=== PATIENT | female | born 1950 | race Caucasian/White ===

== ENCOUNTER 2025-05-05 14:35 | Emergency (ER) | payer OTHER ==
[2025-05-05 15:12] LABS: Sqamous Epithelial None Seen /HPF (None Seen); Urine Crystals Unidentified Moderate /HPF (None Seen); Urine Culture Reflex Order REFLEXED; Urine Microscopic Reflex YN ORDER UMIC; Urine WBC Clump Many /HPF (None Seen); Urine Yeast (Budding) Many /HPF (None Seen)
[2025-05-05] MEDS ORDERED: ACETAMINOPHEN 500 MG TAB ONE (15:21)
[2025-05-05] MEDS ORDERED: levoFLOXacin 250 MG TAB ONE (15:21)
[2025-05-05] MEDS ORDERED: ONDANSETRON 4 MG (ODT) TAB ONE (15:22)
--- NOTE | 2025-05-05 15:31 | EDPHYS ---
Physician Documentation [facility] Name: Floresita Jose Age: 75 yrs Sex: Female : 1950 Arrival Date: 05/05/2025 Time: 14:35 Bed 20 Private MD: ED Physician David Rodriguez HPI: 05/05 14:50 This 75 yrs old Female presents to ER via Ambulatory with complaints of Urinary Problem.cp 14:50 The patient presents with urinary symptoms, dysuria, hematuria. cp 14:50 Onset: The symptoms/episode began/occurred 2 day(s) ago. Associated signs and symptoms: cp Pertinent positives: nausea, lower abdomen pain, Pertinent negatives: fever, vomiting, back pain. Severity of symptoms: in the emergency department the symptoms are unchanged, despite home interventions. Historical: - Allergies: 14:46 Sulfa (Sulfonamide Antibiotics); dd2 - PMHx: 14:46 None; dd2 - PSHx: 14:46 Total abdominal hysterectomy; dd2 - Immunization history:: Adult Immunizations up to date. - Infectious Disease History:: Denies. - Social history:: Smoking status: Patient denies any tobacco usage or history of. ROS: 14:55 Constitutional: Positive for chills, Negative for body aches, fever, poor PO intake, cp 14:57 Abdomen/GI: Positive for abdominal pain, nausea, of the suprapubic area, cp 14:57 Eyes: Negative for injury, pain, redness, and discharge, cp 14:57 Cardiovascular: Negative for chest pain, cp 14:57 Respiratory: Negative for cough, shortness of breath, wheezing, 14:57 Back: Negative for pain at rest, pain with movement, 14:57 Neuro: Negative for altered mental status, dizziness, headache, weakness, 14:57 All other systems are negative, Exam: 15:00 Constitutional: The patient appears in no acute distress, alert, awake, non-toxic, well cp developed, well nourished, 15:00 Head/Face: Normocephalic, atraumatic. cp 15:00 Eyes: Periorbital structures: appear normal, Conjunctiva: normal, no exudate, no injection, Sclera: no appreciated abnormality, Lids and lashes: appear normal, bilaterally, 15:00 ENT: External ear(s): are unremarkable, Nose: is normal, Mouth: Lips: moist, Oral mucosa: moist, Posterior pharynx: Airway: no evidence of obstruction, patent, 15:00 Chest/axilla: Inspection: normal, 15:00 Cardiovascular: Rate: normal, 15:00 Respiratory: the patient does not display signs of respiratory distress, Respirations: normal, no use of accessory muscles, no retractions, labored breathing, is not present, Breath sounds: are clear throughout, no decreased breath sounds, 15:00 Abdomen/GI: Inspection: abdomen appears normal, Palpation: soft, in all quadrants, mild abdominal tenderness, in the suprapubic area, 15:00 Back: CVA tenderness, is absent, 15:00 Neuro: Orientation: to person, place \T\ time. Mentation: is normal, Motor: moves all fours, strength is normal, Gait: is steady, at a normal pace, without difficulty, Vital Signs: 14:44 BP 177 / 86; Pulse 88; Resp 16; Temp 98.5; Pulse Ox 98% ; Weight 68.04 kg; Height 5 ft. dd2 4 in. ; Pain 5/10; 14:48 BP 162 / 86; Pulse 89; Resp 18; Pulse Ox 97% ; ar8 15:30 BP 143 / 80; Pulse 89; Resp 17; Pulse Ox 97% on R/A; ar8 14:44 Body Mass Index 25.75 (68.04 kg, 162.56 cm) dd2 14:44 Pain Scale: Adult dd2 MDM: 14:39 Medical Screening Exam initiated cp 15:00 Differential diagnosis: urinary tract infection, kidney stone, sepsis, bacteremia, cp cystitis. 15:16 Data reviewed: vital signs, nurses notes, lab test result(s), urinalysis. cp 15:30 I considered the following discharge prescriptions or medication management in the emergency department Medications were administered in the Emergency Department. See MAR. Counseling: I had a detailed discussion with the patient and/or guardian regarding the historical points, exam findings, and any diagnostic results supporting the discharge/admit diagnosis, lab results, to return to the emergency department if symptoms worsen or persist or if there are any questions or concerns that arise at home. 05/05 14:45 Order name: UA Rfx Tyrel Cult if indicated; Complete Time: 15:12 05/05 15:13 Interpretation: Normal except: [facility] Extremely Turbid; UBLD 3+ (OVER); UPROT 2+; UESTR cp 500; UWBC >50; URBC >50; UNCX Moderate; UWBC Clump Many; BYST Many. 05/05 15:15 Order name: Urine Culture EDMS Administered Medications: 15:54 Drug: Acetaminophen PO 1000 mg PO once Route: PO; ar8 15:54 Follow up: Response: Medication administered at discharge. ar8 15:54 Drug: Ondansetron PO 4 mg PO once Route: PO; ar8 15:54 Follow up: Response: Medication administered at discharge. ar8 15:54 Drug: LevOfloxacin PO 500 mg PO once Route: PO; ar8 15:54 Follow up: Response: Medication administered at discharge. ar8 15:55 Not Given (Patient Refused; refused due to delay in arrival from [facility]): ar8 [id number] mg PO once Disposition: 17:11 Co-signature as Attending Physician, David Rodriguez MD I reviewed the patient's care rn provided by the Advanced Practice Provider and agree with the diagnosis and treatment plan. Disposition Summary: 05/05/25 15:31 Discharge Ordered Notes: Location: Home cp Problem: new cp Symptoms: have improved cp Condition: Stable cp Diagnosis - UTI/ Urinary tract infection, site not specified cp Followup: cp - With: Private Physician - When: 2 - 3 days - Reason: Recheck today's complaints Discharge Instructions: - Discharge Summary Sheet cp - Urinary Tract Infection, Adult cp Forms: - Medication Reconciliation Form cp - Antibiotic Education cp - Prescription Opioid Use cp - Patient Portal Instructions cp - Leadership Thank You Letter cp Prescriptions: - Pyridium 200 mg Oral Tablet - take 1 tablet ORAL route every 8 hours for 3 days; 9 tablet; Refills: 0, cp Product Selection Permitted - Zofran 4 mg Oral tablet - take 1 tablet ORAL route every 12 hours As needed; 15 tablet; Refills: 0, cp Product Selection Permitted - cefpodoxime 200 mg Oral tablet - take 1 tablet ORAL route every 12 hours for 7 days with food; 14 tablet; cp Refills: 0, Product Selection Permitted Signatures: Dispatcher [employer] EDMS David Rodriguez MD MD rn Page, Corey, PA-C PAHILARIO ARIAS cp, RN RN dd2 Aidan Stanley RN RN ar8 Corrections: (The following items were deleted from the chart) 14:58 14:55 Constitutional: Negative for body aches, fever, poor PO intake, cp cp
--- NOTE | 2025-05-05 15:31 | ER ---
Nurse's Notes [facility] Name: Floresita Jose Age: 75 yrs Sex: Female : 1950 Arrival Date: 05/05/2025 Time: 14:35 Bed 20 Private MD: Diagnosis: UTI/ Urinary tract infection, site not specified Presentation: 05/05 14:44 Chief complaint: Patient states: URINARY FREQUENCY, URGENCY, AND BURNING FOR 2 DAYS. dd2 REPORTS SHE BEGAN HAVING CHILLS LOWER ABDOMINAL PAIN AND BLOOD IN HER URINE TODAY. Coronavirus screen: At this time, the client does not indicate any symptoms associated with coronavirus-19. Ebola Screen: No symptoms or risks identified at this time. Initial Sepsis Screen: Does the patient meet any 2 criteria? No. Patient's initial sepsis screen is negative. Does the patient have a suspected source of infection? No. Patient's initial sepsis screen is negative. Risk Assessment: Do you want to hurt yourself or someone else? Patient reports no desire to harm self or others. Onset of symptoms was May 03, 2025. 14:44 Method Of Arrival: Ambulatory dd2 14:44 Acuity: DARLENE 3 dd2 Triage Assessment: 14:46 General: Appears in no apparent distress. uncomfortable, Behavior is calm, cooperative, dd2 appropriate for age. Pain: Complains of pain in suprapubic area, right lower quadrant and left lower quadrant. : Reports burning with urination, pain in right in left lower quadrant(s) urgency, urinary frequency. Historical: - Allergies: 14:46 Sulfa (Sulfonamide Antibiotics); dd2 - PMHx: 14:46 None; dd2 - PSHx: 14:46 Total abdominal hysterectomy; dd2 - Immunization history:: Adult Immunizations up to date. - Infectious Disease History:: Denies. - Social history:: Smoking status: Patient denies any tobacco usage or history of. Screenin:[address] [facility] ED Fall Risk Assessment (Adult) History of falling in the last 3 months, ar8 including since admission No falls in past 3 months (0 pts) Confusion or Disorientation No (0 pts) Intoxicated or Sedated No (0 pts) Impaired Gait No (0 pts) Mobility Assist Device Used No (0 pt) Altered Elimination No (0 pt) Score/Fall Risk Level 0 - 2 = Low Risk Oriented to surroundings, Maintained a safe environment. Abuse screen: Denies threats or abuse. Nutritional screening: No deficits noted. Tuberculosis screening: No symptoms or risk factors identified. Assessment: 14:48 General: Appears uncomfortable, Behavior is calm, cooperative. ar8 14:48 Pain: Complains of pain in suprapubic area, right lower quadrant and left lower ar8 quadrant Quality of pain is described as aching, crampy. Neuro: Level of Consciousness is awake, alert, obeys commands, Oriented to person, place, time, situation. Cardiovascular: Patient's skin is warm and dry. Respiratory: Airway is patent Respiratory effort is even, unlabored, Respiratory pattern is regular, symmetrical. : Urine is blood tinged, Reports cramping, in right in left lower quadrant(s) urgency, blood in urine. Derm: Skin is intact, Skin is dry, Skin is pink, warm \T\ dry. Skin temperature is warm. 15:35 Reassessment: Delay in discharge- awaiting medication from pharmacy. ar8 Vital Signs: 14:44 BP 177 / 86; Pulse 88; Resp 16; Temp 98.5; Pulse Ox 98% ; Weight 68.04 kg; Height 5 ft. dd2 4 in. ; Pain 5/10; 14:48 BP 162 / 86; Pulse 89; Resp 18; Pulse Ox 97% ; ar8 15:30 BP 143 / 80; Pulse 89; Resp 17; Pulse Ox 97% on R/A; ar8 14:44 Body Mass Index 25.75 (68.04 kg, 162.56 cm) dd2 14:44 Pain Scale: Adult dd2 ED Course: 14:37 Patient arrived in ED. al6 14:38 Edin Moon PA-C is PHCP. cp 14:38 David Rodriguez MD is Attending Physician. cp 14:39 Aidan Stanley, AMBER is Primary Nurse. ar8 14:41 Arm band placed on Patient placed in an exam room, on a stretcher. ll1 14:46 Triage completed. dd2 14:48 Bed in low position. Call light in reach. Side rails up X 1. Provided Education on: ar8 plan of care, diagnostics and estimated wait time. Pulse ox on. NIBP on. 14:48 Warm blanket given. ar8 14:48 No provider procedures requiring assistance completed. Urine collected: clean catch ar8 specimen, blood tinged. 15:43 Patient did not have IV access during this emergency room visit. ar8 Administered Medications: 15:54 Drug: Acetaminophen PO 1000 mg PO once Route: PO; ar8 15:54 Follow up: Response: Medication administered at discharge. ar8 15:54 Drug: Ondansetron PO 4 mg PO once Route: PO; ar8 15:54 Follow up: Response: Medication administered at discharge. ar8 15:54 Drug: LevOfloxacin PO 500 mg PO once Route: PO; ar8 15:54 Follow up: Response: Medication administered at discharge. ar8 15:55 Not Given (Patient Refused; refused due to delay in arrival from [facility]): ar8 [id number] mg PO once Medication: 14:48 VIS not applicable for this client. ar8 Outcome: 15:31 Discharge ordered by MD. cp 15:55 Discharged to home ambulatory, ar8 15:55 Condition: stable 15:55 Discharge instructions given to patient, significant other, Instructed on discharge instructions, follow up and referral plans. medication usage, Demonstrated understanding of instructions, follow-up care, medications, Prescriptions given X 3, 15:56 Patient left the ED. ar8 Signatures: Edin Moon, PA-C PA-C Linus Ivan RN RN ll1 HILARIO BUTT RN RN dd2 Fariha Keen Andrea, RN RN ar8
[2025-05-05] MEDS ORDERED: CEFDINIR 300 MG CAP PO ONE (15:45)
[2025-05-05 16:01] VITALS: TEMP 98.5
[2025-05-05 16:02] VITALS: O2SAT 97
[2025-05-05 16:03] VITALS: BP 143/80
== END 2025-05-05 15:56 | disposition home or self-care (01) ==
LOC: ER 14:35
DX: N39.0 Urinary tract infection, site not specified (principal); R11.0 Nausea
CPT/HCPCS: 87088; 81001; 87086; 99284; Q0162